=== PATIENT | female | born 1965 | race Two or more races ===

== ENCOUNTER 2020-04-15 08:22 | Inpatient (IN) | payer MEDICAID ==
[2020-04-11 10:00] LABS: EOSINOPHILS % (AUTO) 1.6 % (0.0-3.0); HEMATOCRIT 42.1 % (37.0-47.0); HEMOGLOBIN 13.7 G/DL (12.0-16.0); LYMPHOCYTES % (AUTO) 35.5 % (20.0-45.0); MEAN CORPUSCULAR VOLUME 98 FL (80-99); MONOCYTES % (AUTO) 5.2 % (1.0-10.0); NEUTROPHILS % (AUTO) 55.7 % (45.0-75.0); PLATELET COUNT 290 K/UL (150-450); RED BLOOD COUNT 4.31 M/UL (4.20-5.40); RED CELL DISTRIBUTION WIDTH 12.5 % (11.6-14.8); WHITE BLOOD COUNT 9.4 K/UL (4.8-10.8)
[2020-04-11 10:09] LABS: APPEARANCE,URINE CLEAR; BILIRUBIN, URINE NEGATIVE (NEGATIVE); COLOR,URINE PALE YELLOW; GLUCOSE, URINE (UA) NEGATIVE (NEGATIVE); KETONES,URINE NEGATIVE (NEGATIVE); LEUKOCYTE ESTERASE ,URINE NEGATIVE (NEGATIVE); NITRITE,URINE NEGATIVE (NEGATIVE); PH,URINE 5 (4.5-8.0); PROTEIN,URINE NEGATIVE (NEGATIVE); UROBILINOGEN,URINE NORMAL MG/DL (0.0-1.0)
[2020-04-11 10:24] LABS: ANION GAP 6 mmol/L (5-15); BLOOD UREA NITROGEN 7 mg/dL (7-18); CALCIUM 8.5 MG/DL (8.5-10.1); CARBON DIOXIDE 29 MMOL/L (21-32); CHLORIDE 104 MMOL/L (98-107); CREATININE 0.8 MG/DL (0.55-1.30); POTASSIUM 4.4 MMOL/L (3.5-5.1); SODIUM 139 MMOL/L (136-145)
--- NOTE | 2020-04-13 14:55 | Cardiology Report ---
APPROVED REPORT EKG Measurement Heart [id number] IL [id number] <Conclusion> Sinus bradycardia Low voltage QRS Borderline ECG
--- NOTE | 2020-04-14 09:30 | Pre-op HX & Phy Repo 2 SIG ---
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 She presented for routine imaging and was found to have a 1.3 cm mass in the left breast upper outer quadrant 10 cm from the nipple which with compression views measured 8mm. The patient underwent core biopsy revealing invasive ductal carcinoma and ductal carcinoma in situ. She has no prior history of breast disease and no family history of breast cancer. PAST MEDICAL HISTORY/MEDICATIONS: None. ALLERGIES: None. OPERATIONS: None. REVIEW OF SYSTEMS: 4, para 4, menopausal x2 years. PHYSICAL EXAMINATION: GENERAL: The patient is 5 feet, 165 pounds. VITAL SIGNS: Within normal limits. HEENT: Within normal limits. LUNGS: Clear. HEART: Regular rhythm. BREASTS: Moderately large and ptotic. There is no palpable mass in either breast. There is no axillary or supraclavicular lymphadenopathy. ABDOMEN: Soft. PELVIC: Per primary care. RECTAL: Per primary care. EXTREMITIES: Without edema. NEUROLOGIC: Physiologic. IMPRESSION: Invasive ductal carcinoma and ductal carcinoma in situ, left breast; ER, ND and HER2 positive. Ki-67 25%. PLAN: The patient was seen by Oncology, who recommended proceeding with surgery at this time with additional treatment to be determined based on final pathology. The patient is scheduled to undergo left breast partial mastectomy with preoperative needle localization and left axillary lymph node biopsy. I have had a full discussion with the patient regarding the condition including indications, alternatives, options, and risks, which include bleeding, infection, scarring or distortion of breast or nipple, neuritis or neuralgia from axillary dissection node biopsy, need for additional treatment including possible additional surgery, chemotherapy, radiation therapy, hormonal blockade based on final pathology. The patient understands and agrees to proceed. Nik Ferguson M.D. DR: CARLOTTA JOB#: [id number] CC: ALISTAIR
[~2020-04-15] VITALS: Ht 152.4 cm; Wt 73.5 kg
[2020-04-15] VITALS (11 sets, daily range): BP systolic 104–141; BP diastolic 62–81
--- NOTE | 2020-04-15 09:40 | Anethesia Preoperative Eval ---
Anesthesia Pre-op PMH/ROS General Date of Evaluation: Apr 15, 2020 Time of Evaluation: 10:17 Anesthesiologist: Charly ASA Score: ASA 3 Mallampati Score Class I : Soft palate, uvula, fauces, pillars visible Class II: Soft palate, uvula, fauces visible Class III: Soft palate, base of uvula visible Class IV: Only hard plate visible Mallampati Classification: Class II Surgeon: Marty Diagnosis: L Breast Invasive Ductal CA Surgical Procedure: L Breast Partial Mastectomy with Lymph Node Dissection Anesthesia History: none Family History: no anesthesia problems Allergies: Coded Allergies: No Known Allergies (Unverified , 04/14/20) Medications: see eMAR Patient NPO?: Yes Past Medical History Gastrointestinal/Genitourinary: Reports: GERD Hematology/Immune: Reports: other - L Breast CA Other: obesity - BMI 32 Anesthesia Pre-op Phys. Exam Physician Exam Last Vital Signs Date Time Temp Pulse Resp B/P (MAP) Pulse Ox O2 Delivery O2 Flow Rate FiO2 04/15/20 08:57 Room Air 04/15/20 08:57 97.9 59 18 121/67 99 Constitutional: NAD Neurologic: CN 2-12 intact Cardiovascular: RRR Respiratory: CTA Gastrointestinal: S/NT/ND Airway Exam Mallampati Score: Class II MO: full ROM: limited Teeth: missing, intact Anesthesia Pre-op A/P Risk Assessment & Plan Assessment: ASA 3 Plan: GA, SED Status Change Before Surgery: No Pre-Antibiotics Dru Gram Ancef IV Given Within 1 Hr of Incision: Yes Time Given: 10:36 Thomas Parks MD Apr 15, 2020 09:40
--- NOTE | 2020-04-15 09:41 | 48 Hour Post Anesthesia Eval ---
Post Anesthesia Evaluation Procedure: L Breast Partial Mastectomy with Lymph Node Dissection Date of Evaluation: Apr 15, 2020 Time of Evaluation: 14:44 Blood Pressure Systolic: 123 0: 68 Pulse Rate: 67 Respiratory Rate: 18 Temperature (Fahrenheit): 98 O2 Sat by Pulse Oximetry: 97 Airway: patent Nausea: No Vomiting: No Pain Intensity: 2 Hydration Status: adequate Cardiopulmonary Status: Stable Mental Status/LOC: patient returned to baseline Follow-up Care/Observations: 0 Post-Anesthesia Complications: 0 Follow-up care needed: N/A Thomas Parks MD Apr 15, 2020 09:41
--- NOTE | 2020-04-15 09:41 | Immediate Post-Op Evaluation ---
Immediate Post-Op Evalulation Immediate Post-Op Evalulation Procedure: L Breast Partial Mastectomy with Lymph Node Dissection Date of Evaluation: Apr 15, 2020 Time of Evaluation: 12:35 IV Fluids: 700 LR Blood Products: 0 Estimated Blood Loss: 25 Urinary Output: 0 Blood Pressure Systolic: 128 Blood Pressure Diastolic: 75 Pulse Rate: 84 Respiratory Rate: 16 O2 Sat by Pulse Oximetry: 96 Temperature (Fahrenheit): 97.5 Pain Score (1-10): 2 Nausea: No Vomiting: No Complications 0 Patient Status: awake, reacts, patent, none Hydration Status: adequate Dru Gram Ancef IV Given Within 1 Hr of Incision: Yes Time Given: 10:36 Thomas Parks MD Apr 15, 2020 09:41
[2020-04-15] MEDS ORDERED: Metoclopramide 10mg/2ml Inj IVP PRN ×2 (09:45→12:15)
[2020-04-15] MEDS ORDERED: HYDROcodone/Acetamin 7.5/325 tab ORAL PRN (09:45)
[2020-04-15] MEDS ORDERED: oxyCODONE HCL/Acetaminophen 5/325mg ORAL PRN (09:45)
[2020-04-15] MEDS ORDERED: Acetaminophen (Non formulary) 100 ML IV ONE (09:45)
[2020-04-15] MEDS ORDERED: Meperidine 25mg/1ml Inj (FOR RIGORS ONLY) IV PRN (09:45)
[2020-04-15] MEDS ORDERED: LORazepam Inj 2mg/ml 1ml IV PRN (09:45)
[2020-04-15] MEDS ORDERED: HYDROcodone/Acetamin 5/325 tab ORAL PRN ×2 (09:45→12:15)
[2020-04-15] MEDS ORDERED: Atropine Sulfate 0.4mg/ml inj IVP PRN (09:45)
[2020-04-15] MEDS ORDERED: Labetalol 5mg/ml 20ml vial IV PRN (09:45)
[2020-04-15] MEDS ORDERED: DiphenhydrAMINE 50mg/ml Inj IVP PRN (09:45)
[2020-04-15] MEDS ORDERED: Hydromorphone 0.5mg/0.5ml inj IVP PRN (09:45)
[2020-04-15] MEDS ORDERED: LR 1000ml 1,000 ML IVLG SCH (09:45)
[2020-04-15] MEDS ORDERED: Ketorolac 30mg Inj IV PRN ×2 (09:45)
[2020-04-15] MEDS ORDERED: fentaNYL 100 mcg/2 mL IV PRN (09:45)
[2020-04-15] MEDS ORDERED: Midazolam 2mg/2ml Inj IVP PRN (09:45)
--- NOTE | 2020-04-15 09:46 | Pre-Procedure Note/Attestation ---
Pre-Procedure Note/Attestation Complete Prior to Procedure Planned Procedure: left Procedure Narrative: left breast partial mastectomy with pre-operative needle localization and left axillary lymph node biopsy Indications for Procedure Pre-Operative Diagnosis: invasive ductal carcinoma left breast Attestation I attest that I discussed the nature of the procedure; its benefits; risks and c omplications; and alternatives (and the risks and benefits of such alternatives), prior to the procedure, with the patient (or the patient's legal telephone service representative). I attest that, if there was a reasonable possibility of needing a blood transfusion, the patient (or the patient's legal telephone service representative) was given the [facility] standardized written summary, pursuant to the Adilson Aylene Blood Safety Act ([place] Health and Safety Code # 1645, as amended). I attest that I re-evaluated the patient just prior to the surgery and that there has been no change in the patient's H&P, except as documented below: none Nik Ferguson MD Apr 15, 2020 09:46
[2020-04-15] MEDS ORDERED: Lidocaine 1% MPF 10mg/ml 5ml ONE ×2 (09:48→11:06)
[2020-04-15] MEDS ORDERED: Sodium Chloride 10ml vial INJ ONE (09:48)
[2020-04-15] MEDS ORDERED: fentaNYL 100 mcg/2 mL IV ONE (09:49)
[2020-04-15] MEDS ORDERED: Bacitracin 50000 Units Vial ONE (09:50)
[2020-04-15] MEDS ORDERED: propofoL 1,000mg/100ml IV ONE (09:50)
[2020-04-15] MEDS ORDERED: Sterile Water Irrig 1000ml IRRIG ONE (10:17)
[2020-04-15] MEDS ORDERED: NS Irrig 2000ml IRRIG ONE (10:17)
[2020-04-15] MEDS ORDERED: HYDROmorphone 1mg/ml Carpuject SUBQ PRN (12:15)
--- NOTE | 2020-04-15 12:21 | Brief Operative Note ---
Immediate Post Operative Note Operative Note Pre-op Diagnosis: invasive ductal carcinoma left breast Procedure: left breast partial mastectomy with pre-operative needle localization and left axillary lymph node biopsy Post-op Diagnosis: same Post-op Diagnosis: same as pre-op Findings: consistent w/pre-op dx studies Surgeon: tami Anesthesiologist: luciana Anesthesia: general Specimen: yes - left breast cancer, left axillary lymph node Complications: none Condition: unstable Fluids: see anesthesia record Estimated Blood Loss: minimal Drains: LEOPOLDO Implant(s) used?: No Nik Ferguson MD Apr 15, 2020 12:21
--- NOTE | 2020-04-15 14:30 | Operative Note - Dictated ---
DATE OF OPERATION: 04/15/2020 SURGEON: Nik Ferguson MD. WEAVE DEFECT CHARTING CLERK: None. ANESTHESIOLOGIST: Thomas Parks MD. TYPE OF ANESTHESIA: General. PREOPERATIVE DIAGNOSIS: Invasive ductal carcinoma, left breast. POSTOPERATIVE DIAGNOSIS: Invasive ductal carcinoma, left breast. OPERATION PERFORMED: Left breast partial mastectomy with preoperative needle localization and left axillary lymph node biopsy. DESCRIPTION OF PROCEDURE: The patient was taken to the operating room and under general anesthesia with sequential compression device stockings in place, she was prepped and draped in the usual fashion. The lesion was located in the upper outer quadrant of the left breast at 2 o'clock 10 cm from the nipple. A curvilinear incision was made achieving hemostasis with cautery and dissecting flaps circumferentially. The localization wire was brought into the field. The appropriate of breast tissue was resected down to the chest wall using cautery for hemostasis. The specimen was oriented with sutures placed anterior, superior and medial. Specimen radiograph was performed confirming the presence of the lesion, although the clip had been displaced. After palpating the tissue, additional medial tissue was taken. The pathologist inspected the tissue and found the margins to be clear. The field was irrigated with sterile water and then antibiotic solution and hemostasis carefully achieved with cautery. While waiting for the specimen radiograph and pathology, I made a vertical left axillary incision achieving hemostasis with cautery and incising the clavipectoral fascia. Lower level dissection was performed using the Thunderbeat vessel-sealing electrosurgical device. Pathology confirmed the presence of lymph node within the tissue. Hemostasis was carefully achieved with cautery. The axillary was from the breast resection by only a thin veil of tissues and these were now connected into one space through a separate stab incision lateral and inferior to the breast incision. A large flat Suhail drain was placed passing through the breast cavity and into the axilla. It was sutured to the skin with a 2-0 nylon skin suture. After irrigating and ascertaining, hemostasis was secured. The axilla was closed using 3-0 Vicryl on the clavipectoral fascia and subcutaneous tissues and the skin closed with continuous 4-0 Monocryl subcuticular suture. The breast incision was closed with interrupted 2-0 Vicryl deep dermal subcutaneous sutures followed by continuous 4-0 Monocryl subcuticular suture. Tincture of benzoin and half-inch Steri-Strips were applied to both incisions. Final sponge and needle counts were correct. The patient tolerated the procedure well and left the operating room in good condition. Nik Ferguson M.D. DR: ANGELIA JOB#: [id number] CC:
[2020-04-15] MEDS: D5 1/2NS w/KCl 20mEq 1,000 ML IV SCH (16:00)
[2020-04-15] MEDS: ceFAZolin sod 1 GM in D5W 55 ML IV SCH ×2 (17:53→21:34)
[2020-04-16] VITALS: BP 91/50
[2020-04-16 04:00] VITALS: BP 109/65
[2020-04-16] MEDS: D5 1/2NS w/KCl 20mEq 1,000 ML IV SCH (05:52)
[2020-04-16 08:00] VITALS: BP 122/63
[2020-04-16 12:00] VITALS: BP 113/62
--- NOTE | 2020-04-16 12:33 | General Progress Note ---
Progress Note Progress Note AVSS Required Dilaudid SQ overnight but comfortable now left breast and axilla incisions clean and dry with intact steristrips LEOPOLDO 5cc Imp: doing well Plan: discharge Rx [place] 5 #20 Instructions/limitations/supplies discussed/provided f/u office 04/22 Nik Ferguson MD Apr 16, 2020 12:33
--- NOTE | 2020-04-18 09:09 | Discharge Summary ---
Discharge Summary Hospital Course Date of Admission Apr 15, 2020 at 13:55 Date of Discharge Apr 16, 2020 at 14:15 Admitting Diagnosis Invasive ductal carcinoma, left breast Reason for Hospitalization: elective surgery LIVAN Gardner is a 54 year old female who was admitted on Apr 15, 2020 at 13:55 for Invasive ductal carcinoma, left breast. Patient was admitted for elective surgery. Procedures s/p 04/15/[address] Ferguson Left breast partial mastectomy with preoperative needle localization and left axillary lymph node biopsy. Hospital Course status post surgery course of recovery uneventful initially IV fluids s/p perioperative antibiotic left breast and axilla incision remained clean and dry with intact Steri-Strips LEOPOLDO output closely monitored, minimal output. patient was instructed on care of LEOPOLDO drain at home pain management was addressed and controlled remained hemodynamically stable ambulated tolerated diet , IV fluids discontinued voided freely patient was stable for discharge home discharge instruction/limitations/supplies discussed/provided prescription for [place] 5/325 #20 provided follow-up in the office 04/22 FINAL DIAGNOSES Invasive ductal carcinoma, left breast. s/p Left breast partial mastectomy with preoperative needle localization and left axillary lymph node biopsy. Discharge Medications Medication Profile: No Active Prescriptions or Reported Meds Discharge Condition Upon Discharge: stable Discharge Vital Signs Last Vital Signs Date Time Temp Pulse Resp B/P (MAP) Pulse Ox O2 Delivery O2 Flow Rate FiO2 04/16/20 12:00 98.2 67 18 113/62 (79) 96 04/16/20 09:00 Room Air 04/15/20 13:32 2.0 Discharge Disposition Patient was discharged home Discharge Instructions Discharge Instructions Special Instructions I have been assigned to complete a D/C Summary on this account. I was not involved in the patient management Denisse Rodriguez NP Apr 18, 2020 09:09
== END 2020-04-16 14:15 | disposition home or self-care (01) | DRG 363 ==
LOC: SUR 08:22 → 3E 13:55
PROC: 0HBU0ZZ Excision of Left Breast, Open Approach (ICD-10-PCS; principal; 2020-04-16)
PROC: 07B60ZX Excision of Left Axillary Lymphatic, Open Approach, Diagnostic (ICD-10-PCS; 2020-04-16)
DX: C50.412 Malignant neoplasm of upper-outer quadrant of left female breast (principal); Z17.0 Estrogen receptor positive status [ER+]
CPT/HCPCS: 36415; 80048; 81001; 85025; 85610; 85730; 93005; 94003; 94150; J2405; U0002